=== PATIENT | female | born 1980 | race Caucasian/White ===

== ENCOUNTER 2023-12-26 01:01 | Inpatient (IN) ==
[2023-12-26] MEDS ORDERED: LIDOCAINE 1% LOCAL 20 ML VIAL INFIL PRN (01:39)
[2023-12-26] MEDS: LACTATED RINGER'S 1,000 ML IV PRN (02:00)
[2023-12-26 02:23] LABS: Hematocrit (blood only) 34.7 % (37.0-47.0); Hemoglobin 11.7 g/dl (12.0-16.0); Mean Corpuscular Hgb Conc 33.7 g/dL (32.0-36.0); Mean Corpuscular Volume 91.8 fL (80.0-100.0); Mean Platelet Volume 10.2 fL (9.4-12.4); Platelet Count 163 K/uL (130-400); RDW Coefficient of Variation 13.1 % (11.5-14.5); RDW Standard Deviation 42.9 fL (36.4-46.3); Red Blood Count 3.78 M/uL (4.20-5.40)
--- NOTE | 2023-12-26 02:36 | History & Physical Report ---
Date of Service December 26, 2023 Assessment & Plan (1) AMA (advanced maternal age) multigravida 35+: (2) Diet controlled gestational diabetes mellitus (GDM) in third trimester: (3) Limited care in third trimester: (4) premature rupture of membranes: Plan: 43-year-old -0-0-2 at 36 weeks and 6 days of gestation presenting with? P PROM since December 21 when it was ruled out by speculum exam, leaking since then, contractions with cervical change, Vital signs stable afebrile, heart rate reassuring, GBS negative, Plan to admit, monitor, labs, expectant management for now, All questions were answered. Admission and Anticipated Discharge Date Admission Date: December 26, 2023 History of Present Illness Primary Care Provider: NO PCP Patient is a 43-year-old -0-0-2 at 36 weeks and 6 days of gestation who presented to labor and delivery on December 21 with leakage of fluid. She had speculum exam by Dr. Carrera and rupture of membrane was ruled out. She states she has been leaking since then and her contractions started yesterday morning around 11 AM. They got more closer and regular after midnight and she came to the ER. She feels contractions every 3 to 4 minutes and they have been painful. She denies vaginal bleeding, fever chills, nausea vomiting. She reports good movements. Her has been complicated by, 1. AMA, NIPT was not done, 2. Late and limited care, 3. 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, opting for adoption out Allergies Allergy/AdvReac Type Severity Reaction Status Date / Time Penicillins Allergy Swelling Verified 11/28/23 06:43 of Lip/Tongue/Throat Home Medications Medication Instructions Recorded Confirmed Type ferrous sulfate 325 mg (65 mg 325 mg PO QAM #60 tabs 09/15/23 Rx iron) tablet,delayed release vits no.124-ferrous fum 1 tab PO QAM #90 tabs 09/15/23 Rx 27 mg iron-folic acid 800 mcg tablet ( Vitamin) Patient History Medical History No care in current Hemorrhage, antepartum, second trimester Social History Smoking Status: Never smoker Second Hand Exposure: No; Do You Dip or Chew Tobacco: No; Hx Alcohol Use: No Hx Substance Use: No Preferred Language: Occitan Communication Tools: IPad Commodity Analyst Required: Yes Beliefs That Will Affect Care: None marital status: Single Current Living Situation: Alone Current Living Situation Comment: A friend- in hotel Feels Safe at Home: Yes Assistive Devices: None OB History Full-term 's x 2 in Review of Systems as per Subjective / HPI Physical Exam Constitutional: WD/WN, vitals as above well developed, well nourished and + acute distress (With contractions) Gastrointestinal (Abdomen): normal bowel sounds, soft, nontender, no hepatosplenomegaly (Gravid) Genitourinary: normal external appearance OB Exam Abdomen: + vertex Manual OB Exam: + cervical dilation 3 cm (3-4), + cervical effacement 40% and + station -2 OB Exam Monitor Tracing: + external uterine monitor used and + category I Grossly ruptured, pad is full of fluid and nitrazine positive Bedside ultrasound confirmed viable IUP, vertex, MITRA is 5.7 cm, placenta anterior Results & Data Vital Signs (Past 12 Hours) Vital Signs Pulse BP 12/26/23 01:24 85 119/69 (4) premature rupture of membranes PROM onset of labor timing: onset of labor more than 24 hours following rupture Qualified Code(s): O42.119 - premature rupture of membranes, onset of labor more than 24 hours following rupture, unspecified trimester
[2023-12-26] MEDS ORDERED: ROPIVACAINE 0.5% PF 5 MG/ML 20 ML VIAL EPI PRN (03:36)
[2023-12-26] MEDS ORDERED: SODIUM CHLORIDE 0.9% PF INJ 10 ML VIAL EPI PRN (03:36)
[2023-12-26] MEDS ORDERED: NALBUPHINE HCL 5 MG in SYRINGE 0 ML IV PRN (03:36)
[2023-12-26] MEDS ORDERED: fentANYL 2 MCG/ML BUPIVacaine 0.125%-NSS 100ML BAG EPI PRN (03:36)
[2023-12-26] MEDS ORDERED: BUPIVACAINE 0.25% PF 30 ML VIAL EPI PRN (03:36)
[2023-12-26] MEDS ORDERED: NALOXONE HCL 1 MG in SODIUM CHLORIDE 0.9% 1,000 ML IV PRN (03:36)
[2023-12-26] MEDS ORDERED: ONDANSETRON INJ 2 MG/ML 2 ML VIAL IV PRN (03:36)
[2023-12-26] MEDS ORDERED: NALOXONE HCL 0.4 MG/1 ML VIAL/CARP IV PRN (03:36)
[2023-12-26] MEDS ORDERED: diphenhydrAMINE 50 MG/ML VIAL IV PRN (03:36)
[2023-12-26] MEDS ORDERED: ePHEDrine sulfate 50 MG/ML AMP IV PRN (03:36)
[2023-12-26] MEDS ORDERED: fentaNYL citrate PF 100 MCG/2 ML VIAL EPI PRN (03:36)
[2023-12-26] MEDS ORDERED: LIDOCAINE 2% MPF LOCAL 5 ML VIAL EPI PRN (03:36)
--- NOTE | 2023-12-26 03:39 | Anesthesiology Consultation ---
Date of Service December 26, 2023 Assessment & Plan (1) Encounter for pre-operative examination: Chart Review Chart Review: Patient NOT seen in Pre Admission Testing and Acceptable Risk for Labor Epidural Consults Requested none History Height/Weight Weight: 79.379 kg Allergies Allergy/AdvReac Type Severity Reaction Status Date / Time Penicillins Allergy Swelling Verified 11/28/23 06:43 of Lip/Tongue/Throat Medications Home Medications Medication Instructions Recorded Confirmed Last Taken ferrous sulfate 325 mg (65 mg 325 mg PO QAM #60 tabs 09/15/23 12/26/23 Unknown iron) tablet,delayed release vits no.124-ferrous fum 1 tab PO QAM #90 tabs 09/15/23 12/26/23 Unknown 27 mg iron-folic acid 800 mcg tablet ( Vitamin) Active Medications Generic Name Dose Route Start Last Admin Trade Name Freq PRN Reason Stop Dose Admin Lactated Ringer's 1,000 mls @ 125 mls/hr 12/26/23 01:39 12/26/23 03:03 Lr IV 12/28/23 01:38 125 mls/hr .Q8H PRN Administration L&D Protocol Protocol Past Medical History Medical History (Updated 12/26/23 @ 03:39 by Gerber Tripp MD) Encounter for pre-operative examination No care in current Hemorrhage, antepartum, second trimester Exercise / Class Metabolic Activity II 4-5 Yardwork/Stairs/Walk up hill Past Anesthesia History No Hx of Anesthesia Complications and No Family Hx of Anesthesia Complications History of PONV No Hx of PONV and No Hx of Motion Sickness Social History Smoking Status: Never smoker Do You Dip or Chew Tobacco: No Hx Alcohol Use: No Hx Substance Use: No substance use type: does not use Physical Exam Vital Signs Last Vital Signs Temp 36.9 C 12/26/23 03:30 Pulse 129 H 12/26/23 04:03 Resp 18 12/26/23 01:47 BP 119/69 12/26/23 01:24 Pulse Ox 98 12/26/23 04:03 Testing Laboratory Results 12/26/23 01:59 12/26/23 03:25 POC Glucose 99
[2023-12-26] MEDS: ePHEDrine sulfate 50 MG/ML AMP ONE (04:10)
[2023-12-26] MEDS: LIDOCAINE 2%/EPINEPHRINE 1:200,000 20 ML PF ONE (04:12)
[2023-12-26] MEDS: fentaNYL citrate PF 100 MCG/2 ML VIAL ONE (04:12)
[2023-12-26] MEDS: fentANYL 2 MCG/ML BUPIVacaine 0.125%-NSS 100ML BAG ONE (04:13)
[2023-12-26] MEDS: OXYTOCIN 30 UNITS/NSS 30 UNITS/500 ML BAG IV PRN ×2 (06:30→07:42)
[2023-12-26] MEDS ORDERED: HYDROCORTISONE ACETATE 25 MG SUPP PR PRN (07:25)
[2023-12-26] MEDS ORDERED: BENZOCAINE 20% SPRY 85 APPLN/85 GM CAN EXT PRN (07:25)
[2023-12-26] MEDS ORDERED: bisacodyL 10 MG SUPP PR PRN (07:25)
[2023-12-26] MEDS ORDERED: OXYTOCIN 30 UNITS/NSS 30 UNITS/500 ML BAG IV PRN (07:25)
--- NOTE | 2023-12-26 07:28 | Delivery Summary ---
Vaginal Delivery Summary Date of Service December 26, 2023 Vaginal Delivery Summary Patient was found to be fully dilated and desires to push. She pushed for once and delivered the head and then followed by shoulders spontaneously. The baby was handed off to the mother. The cord was clampedx2 and cut at 1 minute. The vagina and perineum were checked and found to be intact. The placenta was delivered spontaneously as intact and complete. The uterus was explored and found to be empty. EBL was 100 ml. The fundus was firm The baby was a viable female , Apgars 8/9, the weight is pending The mother and the baby tolerated the procedure well. No complications happened and I was present during whole procedure.
[2023-12-26] MEDS: IBUPROFEN 600 MG TAB PO PRN (07:59)
--- NOTE | 2023-12-26 09:10 | Anesthesia Procedure Note ---
Date of Service December 26, 2023 Anesthesia Post Epidural Note Vital Signs Vital Signs: Temp Pulse Resp BP Pulse Ox 37.1 C 87 20 103/62 99 12/26/23 08:18 12/26/23 08:56 12/26/23 08:25 12/26/23 08:56 12/26/23 07:13 Notes Mental Status: alert / awake / arousable Nausea / Vomiting: adequately controlled Pain: adequately controlled Airway Patency, RR, SpO2: stable & adequate BP & HR: stable & adequate Hydration State: stable & adequate Neuraxial Anesthesia: was administered and sensory block is resolving Anesthetic Complications: no major complications apparent and Pt Satisfied with anesthetic care Epidural: Removed without complications and With tip intact
[2023-12-26] MEDS: BUPIVACAINE 0.25% PF 30 ML VIAL ONE (10:22)
[2023-12-26] MEDS: fentaNYL citrate PF 100 MCG/2 ML VIAL EPI STA (10:23)
[2023-12-26] MEDS: SODIUM CHLORIDE 0.9% PF INJ 10 ML VIAL ONE (10:23)
[2023-12-26] MEDS: SODIUM CHLORIDE 0.9% PF INJ 10 ML VIAL EPI STA (10:23)
[2023-12-26] MEDS: BUPIVACAINE 0.25% PF 30 ML VIAL EPI STA (10:23)
[2023-12-26] MEDS: LIDOCAINE 2%/EPINEPHRINE 1:200,000 20 ML PF EPI STA (10:23)
[2023-12-26] MEDS: DOCUSATE SODIUM 100 MG CAP PO SCH (10:24)
[2023-12-26] MEDS: FERROUS SULFATE 325 MG TAB PO SCH (10:24)
[2023-12-26] MEDS: PRENATAL VITAMIN 1 TAB PO SCH (10:24)
[2023-12-26] MEDS: ZOLPIDEM TARTRATE 5 MG TAB PO PRN (13:37)
[2023-12-26] MEDS: ACETAMINOPHEN 325 MG TAB PO PRN (20:36)
[2023-12-26] MEDS: MEASLES, MUMPS & RUBELLA VIRUS VACCINE (MMR) VIAL SQ ONE (23:32)
[2023-12-26] MEDS: DIPHTHER/TETAN/PERTUS Vaccine (Tdap, Adol/Adult) 0.5mL IM ONE (23:32)
[2023-12-27 06:59] LABS: Hemoglobin 10.5 g/dl (12.0-16.0); Mean Corpuscular Hemoglobin 30.6 pg (25.0-34.0); Mean Corpuscular Hgb Conc 32.8 g/dL (32.0-36.0); Mean Corpuscular Volume 93.3 fL (80.0-100.0); Mean Platelet Volume 10.6 fL (9.4-12.4); Platelet Count 174 K/uL (130-400); RDW Coefficient of Variation 13.4 % (11.5-14.5); RDW Standard Deviation 45.5 fL (36.4-46.3); Red Blood Count 3.43 M/uL (4.20-5.40); White Blood Count 13.97 K/ul (4.8-10.8)
--- NOTE | 2023-12-27 09:47 | Obstetrical Progress Note ---
Date of Service December 27, 2023 Assessment & Plan Admission and Anticipated Discharge Date Admission Date: December 26, 2023 Subjective Patient is seen and examined. She feels well, no complaints other than soreness on abdomen. Ambulating without dizziness Voiding without difficulty Tolerating regular diet with out N&V Bleeding is minimal No fever/ chills/ CP/ SOB/ N&V/ Leg pain Baby will be given for adoption. Vital Signs Temp Pulse Pulse Resp BP Pulse Ox O2 Del Method 12/27/23 08:11 36.6 C 96 H 16 98/61 L 95 Room Air 12/27/23 02:46 36.5 C 72 20 100/66 96 Room Air 12/26/23 22:52 37.5 C 68 18 101/65 98 Room Air Lab Results 12/26/23 12/26/23 12/27/23 Range/Units 01:59 03:25 06:09 WBC 12.30 H 13.97 H (4.8-10.8) K/ul RBC 3.78 L 3.43 L (4.20-5.40) M/uL Hgb 11.7 L 10.5 L (12.0-16.0) g/dl Hct 34.7 L 32.0 L (37.0-47.0) % MCV 91.8 93.3 (80.0-100.0) fL MCH 31.0 30.6 (25.0-34.0) pg MCHC 33.7 32.8 (32.0-36.0) g/dL RDW Std Deviation 42.9 45.5 (36.4-46.3) fL RDW Coeff of John 13.1 13.4 (11.5-14.5) % Plt Count 163 174 (130-400) K/uL MPV 10.2 10.6 (9.4-12.4) fL POC Glucose 99 (70-99) mg/dl Blood Type A Positive Antibody Screen NEGATIVE PE: General: Alert, orientedx3, NAD Abd: soft, NT, fundus firm, below Umbilicus Perineum intact, Lochia rubra minimal Ext; NT, no edema AP: 43 yo s/p , ppd# 1 VSS Afebrile doing well Continue routine care All questions were answered D/C home tomorrow Results & Data Vital Signs (Past 12 Hours) Vital Signs Temp Pulse Pulse Resp BP Pulse Ox O2 Del Method 12/27/23 08:11 36.6 C 96 H 16 98/61 L 95 Room Air 12/27/23 02:46 36.5 C 72 20 100/66 96 Room Air 12/26/23 22:52 37.5 C 68 18 101/65 98 Room Air
[2023-12-27] MEDS: bisacodyL 5 MG TABEC PO SCH (19:34)
[2023-12-28] MEDS: oxyCODONE/ACETAMINOPHEN 5mg/325mg TAB PO PRN (00:59)
[2023-12-28] MEDS: diphenhydrAMINE Capsule 25 MG CAP PO PRN (00:59)
[2023-12-28 08:29] LABS: Hematocrit (blood only) 37.7 % (37.0-47.0)
--- NOTE | 2023-12-28 10:29 | Obstetrical Progress Note ---
Date of Service December 28, 2023 Subjective Ambulation: ambulating normally Voiding: no voiding problems Passing Gas:: Yes Diet Tolerance:: regular diet Feeding Type:: bottle feeding Current Pain Level(1-10): 0 doing well. plans to go home. baby being adopted. Physical Exam Constitutional WD/WN, vitals as above Gastrointestinal (Abdomen) Inspection/Auscultation: abdomen normal to inspection abdomen soft and non-tender. fundus firm below U Musculoskeletal Extremities: extremities normal to inspection Skin no rashes, warm and dry Neurologic patellar DTR's 2+ bilat, sensation intact Psychiatric A+Ox3, euthymic affect Results & Data Vital Signs (Past 12 Hours) Vital Signs Temp Pulse Resp BP Pulse Ox O2 Del Method 12/28/23 00:15 36.8 C 58 L 18 114/78 95 Room Air Laboratory Results Laboratory Results - last 72 hr 12/26/23 12/26/23 12/27/23 01:59 03:25 06:09 WBC 12.30 H 13.97 H RBC 3.78 L 3.43 L Hgb 11.7 L 10.5 L Hct 34.7 L 32.0 L MCV 91.8 93.3 MCH 31.0 30.6 MCHC 33.7 32.8 RDW Std Deviation 42.9 45.5 RDW Coeff of John 13.1 13.4 Plt Count 163 174 MPV 10.2 10.6 POC Glucose 99 Blood Type A Positive Antibody Screen NEGATIVE 12/28/23 08:11 WBC RBC Hgb 13.0 Hct 37.7 MCV MCH MCHC RDW Std Deviation RDW Coeff of John Plt Count MPV POC Glucose Blood Type Antibody Screen
== END 2023-12-28 11:20 | disposition home or self-care (01) | DRG 807 ==
LOC: OPB 01:01 → 4S1 01:03 → 4E1 10:15